=== PATIENT | female | born 1960 | race Caucasian/White ===

== ENCOUNTER 2022-09-25 09:00 | Day surgery (SDC) | payer MEDICAID, SELFPAY ==
--- NOTE | 2022-09-22 10:40 | HO.ANESPROP2 ---
Documented by User: Debbie Kirk NP 09/22/22 10:41 HPI - Anesthesia Eval Consult details Narrative: 61yo F for Colonoscopy PMFSH Past Medical History Medical History Abnormal gallbladder ultrasound Anxiety Blind right eye Breast CA Diverticulosis Gastritis GERD (gastroesophageal reflux disease) Glaucoma HTN (hypertension) IBS (irritable bowel syndrome) Internal hemorrhoid Iron deficiency anemia Psychosis Surgical History Surgical History H/O colonoscopy H/O endoscopy H/O eye surgery H/O lumpectomy History of appendectomy History of surgery to major organ S/P spinal fusion Social History Social History Patient Tobacco Use Status: Former Tobacco user Are you DNR?: No Advance Directives: No Advance Directives Information Provided: Yes Nutrition Risks: No Nutritional Risk Meds Allergies Allergy/AdvReac Type Severity Reaction Status Date / Time omeprazole [OMEPRAZOLE] Allergy Unknown BURNING Verified 09/25/22 09:37 SENSATION carisoprodol [From SOMA] AdvReac Unknown AGITATION Verified 09/25/22 09:37 monosodium glutamate AdvReac Unknown NAUSEA & Verified 09/25/22 09:37 VOMITING AND MIGRAINE PAPER TAPE Allergy Unknown RASH Uncoded 09/25/22 09:37 Home Medications Medication Instructions Recorded Confirmed Last Taken Type Colace 1 cap PO DAILY PRN Constipation 09/22/22 09/22/22 Unknown History bupropion HCl 300 mg 24 hr tablet, 300 mg PO QAM 09/22/22 09/22/22 09/25/22 History extended release clonidine HCl 0.1 mg tablet 0.05 mg PO BID PRN anxiety 09/22/22 09/22/22 Unknown History olanzapine 15 mg tablet 15 mg PO BEDTIME 09/22/22 09/22/22 Unknown History pantoprazole 40 mg tablet,delayed 40 mg PO DAILY 09/22/22 09/22/22 Unknown History release propranolol 60 mg capsule,24 60 mg PO DAILY 09/22/22 09/22/22 09/25/22 History hr,extended release senna 2 tab PO DAILY PRN Constipation 09/22/22 09/22/22 Unknown History Exam Exam Date and Time: September 22, 2022 104 Assessment and Plan Assessment Anesthesia Assessment: Chart Reviewed Documented by User: Dianna Luo MD 09/25/22 10:20 PMF Past Medical History Medical History Abnormal gallbladder ultrasound Anxiety Blind right eye Breast CA Diverticulosis Gastritis GERD (gastroesophageal reflux disease) Glaucoma HTN (hypertension) IBS (irritable bowel syndrome) Internal hemorrhoid Iron deficiency anemia Psychosis Surgical History Surgical History H/O colonoscopy H/O endoscopy H/O eye surgery H/O lumpectomy History of appendectomy History of surgery to major organ S/P spinal fusion History of Problems with Anesthesia: No Social History Social History Patient Tobacco Use Status: Former Tobacco user Are you DNR?: No Advance Directives: No Advance Directives Information Provided: Yes Nutrition Risks: No Nutritional Risk Meds Allergies Allergy/AdvReac Type Severity Reaction Status Date / Time omeprazole [OMEPRAZOLE] Allergy Unknown BURNING Verified 09/25/22 09:37 SENSATION carisoprodol [From SOMA] AdvReac Unknown AGITATION Verified 09/25/22 09:37 monosodium glutamate AdvReac Unknown NAUSEA & Verified 09/25/22 09:37 VOMITING AND MIGRAINE PAPER TAPE Allergy Unknown RASH Uncoded 09/25/22 09:37 Home Medications Medication Instructions Recorded Confirmed Last Taken Type Colace 1 cap PO DAILY PRN Constipation 09/22/22 09/22/22 Unknown History bupropion HCl 300 mg 24 hr tablet, 300 mg PO QAM 09/22/22 09/22/22 09/25/22 History extended release clonidine HCl 0.1 mg tablet 0.05 mg PO BID PRN anxiety 09/22/22 09/22/22 Unknown History olanzapine 15 mg tablet 15 mg PO BEDTIME 09/22/22 09/22/22 Unknown History pantoprazole 40 mg tablet,delayed 40 mg PO DAILY 09/22/22 09/22/22 Unknown History release propranolol 60 mg capsule,24 60 mg PO DAILY 09/22/22 09/22/22 09/25/22 History hr,extended release senna 2 tab PO DAILY PRN Constipation 09/22/22 09/22/22 Unknown History Exam Airway Mallampati Class: III TM Dist: >3cm Neck ROM: Full Loose/Missing/Broken Teeth: No Heart: RRR Lungs: CTA Assessment and Plan Assessment Anesthesia Assessment: Anesthesia Plan Discussed Final Anesthetic Review History of Problems with Anesthesia: No NPO: Yes ASA Class: II Final Preanesthetic Review: Meds/Allgs Chart Reviewed, Consent Obtained/Reviewed and Anes Risks/Benef Reviewed Patient Risk: Low Procedure Risk: Intermediate Anesthetic Plan Anesthetic Plan: MAC: Disposition: Standard PACU
[2022-09-25 08:11] VITALS: BMI 28.4
[2022-09-25 09:24] VITALS: BP 164/94; PULSE 60; RESP 18; TEMP 36.6; O2SAT 96
[2022-09-25] MEDS: Lactated Ringers 1,000 ML 100 ML IVCONT (09:26)
[2022-09-25 12:26] VITALS: BP 121/50; PULSE 53; RESP 16; TEMP 36.1; O2SAT 100
--- NOTE | 2022-09-25 12:29 | P.BOP_ITS ---
Brief Operative Note Date of Service: 09/25/22 Pre-op diagnosis: Screening Post-op diagnosis: other (Diverticulosis) Procedure: Colonoscopy to the cecum Surgeon: Ashish Galvez Anesthesia: MAC Was an Hamper Maker Machine used for this Procedure?: No Estimated blood loss (mL): 0 Pathology: none sent Condition: stable Disposition: PACU
[2022-09-25 12:41] VITALS: BP 173/74; PULSE 47; RESP 16; O2SAT 98
[2022-09-25 12:56] VITALS: BP 176/73; PULSE 45; RESP 16; TEMP 36.3; O2SAT 99
--- NOTE | 2022-09-25 16:07 | OP_ITS ---
DATE OF SERVICE: 09/25/2022 SURGEON: Ashish Galvez MD INDICATIONS: The patient presents for evaluation of personal history of tubular adenoma of the colon, family history of colon cancer, and need for colorectal cancer screening. Full consent has rafael obtained today from her for this, including risks of bleeding and perforation. PREOPERATIVE DIAGNOSIS: POSTOPERATIVE DIAGNOSIS: PROCEDURE PERFORMED: Colonoscopy to the cecum. ESTIMATED BLOOD LOSS: COMPLICATIONS: ANESTHESIA: Monitored anesthesia care. ASSISTANTS: SPECIMENS: PREOPERATIVE DIAGNOSES: Personal history of tubular adenoma of the colon, family history of colon cancer, colorectal cancer screening. POSTOPERATIVE DIAGNOSES: Personal history of tubular adenoma of the colon, family history of colon cancer, colorectal cancer screening, diverticulosis, and internal hemorrhoids. DESCRIPTION OF PROCEDURE: The patient was placed in the left lateral decubitus position. The digital rectal exam revealed no abnormalities. The Olympus video pediatric colonoscope was entered into the rectum and advanced easily to the cecum. Once in the cecum, I did identify normal-appearing cecal pouch with appendiceal orifice and a normal-appearing ileocecal valve. The entire cecum and ileocecal valve appeared normal. The scope was slowly withdrawn assessing all mucosal surfaces carefully. Preparation was excellent. I did not visualize any sign of polyps, colitis, nor angiodysplasia. There was a mild amount of sigmoid diverticulosis. In the rectum, scope was retroflexed visualizing small internal hemorrhoids, but no other pathology. The rectal mucosa appeared normal. The scope was straightened and withdrawn from the patient. She tolerated the procedure well and was returned to the recovery area in stable condition. IMPRESSION: 1. Sigmoid diverticulosis. 2. Internal hemorrhoids. PLAN: Given her previous history and family history, I would recommend a followup coloscopy in 5 years for further screening. She will otherwise see me on a p.r.n. basis. ADDENDUM: Of note, I did visualize previously placed submucosal ink ortiz between 20 and 25 cm. There was no sign of any residual polypoid tissue at this area. Ashish Galvez MD RMW/MODL / [id number] MTDD
== END 2022-09-25 14:00 | disposition home or self-care (01) ==
PROVIDERS: PCP Internal Medicine; Visit Provider Internal Medicine
PROC: 0DJD8ZZ Inspection of Lower Intestinal Tract, Via Natural or Artificial Opening Endoscopic (ICD-10-PCS; CPT 45378; principal; 2022-09-25 10:40)
DX: Z12.11 Encounter for screening for malignant neoplasm of colon (principal); Z86.010 Personal history of colon polyps; Z80.0 Family history of malignant neoplasm of digestive organs; K57.30 Diverticulosis of large intestine without perforation or abscess without bleeding; K64.8 Other hemorrhoids; K21.9 Gastro-esophageal reflux disease without esophagitis; I10 Essential (primary) hypertension; D50.9 Iron deficiency anemia, unspecified; F41.1 Generalized anxiety disorder; F29 Unspecified psychosis not due to a substance or known physiological condition; Z79.899 Other long term (current) drug therapy; Z85.3 Personal history of malignant neoplasm of breast; Z92.3 Personal history of irradiation; Z87.891 Personal history of nicotine dependence
CPT/HCPCS: 45378